=== PATIENT | male | born 1935 | race Caucasian/White ===

== ENCOUNTER 2016-03-22 09:10 | Emergency (ER) | payer MEDICARE ==
[2016-03-22 10:27] VITALS: BP 188/69
--- NOTE | 2016-03-22 11:03 | RAD ---
INDICATION: 3 weeks cough productive and weakness. COMPARISON: None. TECHNIQUE: Dual energy PA and routine lateral views of the chest were obtained. REPORT: Subtle mild alveolar consolidation at the level of the lingula with partial obscuration of the LEFT heart margin. Trace fluid in the RIGHT minor fissure. Negative for pneumothorax. Elevated lung volumes and minimal prominence of interstitial markings. Negative for cardiomegaly. Unremarkable central pulmonary vasculature. Mildly tortuous descending thoracic aorta. Mild chronic appearing compression deformities at T12 and T9. IMPRESSION: Suggestion of mild alveolar consolidation at the lingula concerning for pneumonia. Probable chronic obstructive pulmonary disease.
--- NOTE | 2016-03-22 11:15 | UC ---
Respiratory Complaint HPI - HPI Summary HPI Summary: cough for "a while". He can't really say how long. 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 For past few days, diminished energy, weakness when walking around. Body aches, malaise. Poor appetite. No vomiting or diarrhea. No sinus congestion. No flu shot, "I never get sick." Does not have a primary care doctor. - History of Current Complaint Chief Complaint: UCRespiratory Stated Complaint: COUGH,ACHY Time Seen by Provider: 03/22/16 10:16 Hx Obtained From: Patient Onset/Duration: Gradual Onset, Lasting Weeks - 3 Timing: Constant Severity Initially: Mild Severity Currently: Moderate Character: Cough: Productive Aggravating Factors: Exertion, Recumbent Position Alleviating Factors: Nothing Associated Signs And Symptoms: Positive: Chills, URI. Negative: Dyspnea, Fever , Wheezing, Hemoptysis, Dizziness, Nasal Congestion, Hoarseness, Sinus Discomfort - Risk Factors Pulmonary Embolism Risk Factors: Negative Cardiac Risk Factors: Negative Pseudomonas Risk Factors: Negative Tuberculosis Risk Factors: Negative - Allergies/Home Medications Allergies/Adverse Reactions: Allergies Allergy/AdvReac Type Severity Reaction Status Date / Time No Known Allergies Allergy Verified 03/22/16 10:27 Home Medications: Home Medications Dextromethorphan-Guaifenesin [Robitussin Cough & Chest 5-100 mg/5Ml] 1 liq PO Q4HR PRN 03/22/16 [History Confirmed 03/22/16] Dextromethorphan-Phenylephrine [[place] Plus Severe] 1 cap PO Q4HR [History Confirmed 03/22/16] PMH/Surg Hx/FS Hx/Imm Hx Previously Healthy: Yes - Surgical History Surgical History: None - Family History Known Family History: Negative: Hypertension, Respiratory Disease - Social History Occupation: Retired Lives: With Family Alcohol Use: None Substance Use Type: None Smoking Status (MU): Former Smoker Review of Systems Constitutional: Fatigue Skin: Negative Eyes: Negative ENT: Negative Respiratory: Cough Cardiovascular: Negative Gastrointestinal: Negative Genitourinary: Negative Motor: Negative Neurovascular: Negative Musculoskeletal: Negative Neurological: Negative Psychological: Negative All Other Systems Reviewed And Are Negative: Yes Physical Exam Triage Information Reviewed: Yes Appearance: Well-Appearing, No Pain Distress, Well-Nourished Vital Signs: Initial Vital Signs Temp 97 F 03/22/16 10:08 Pulse 80 03/22/16 10:08 Resp 24 03/22/16 10:08 BP 188/69 03/22/16 10:08 Pulse Ox 97 03/22/16 10:08 Vital Signs Reviewed: Yes Eye Exam: Normal ENT: Positive: Hearing grossly normal, Pharynx normal, TMs normal. Negative: Nasal congestion, Nasal drainage, Tonsillar swelling, Tonsillar exudate, Trismus , Muffled/hoarse voice Neck exam: Normal Neck: Positive: Supple Respiratory Exam: Normal Respiratory: Positive: Lungs clear, Normal breath sounds, No respiratory distress, No accessory muscle use Cardiovascular Exam: Normal Musculoskeletal Exam: Normal Neurological Exam: Normal Psychological Exam: Normal Skin Exam: Normal UC Diagnostic Evaluation - Laboratory O2 Sat by Pulse Oximetry: 97 Diagnostic Studies Comment: EKG: PAC's, no ischemic changes. CXR: lingular infiltrate Respiratory Course/Dx - Differential Dx/Diagnosis Differential Diagnosis/HQI/PQRI: Bronchitis, Lower Resp Infection Provider Diagnoses: pneumonia Discharge - Discharge Plan Condition: Stable Disposition: HOME Prescriptions: Clarithromycin [Biaxin Xl Pac] 500 mg PO BID #20 tab Patient Education Materials: Pneumonia (ED) Referrals: Non Staff,Doctor [Primary Care Provider] - Additional Instructions: If you are not getting better over the next few days, particularly if you run high fever, vomit, or have trouble breathing, return here or go to the ER.
== END 2016-03-22 11:15 | disposition home or self-care (01) ==
LOC: UCCORT 09:10
DX: J18.9 Pneumonia, unspecified organism (principal); Z87.891 Personal history of nicotine dependence
CPT/HCPCS: 71020; 87502; 93005; 99202; G0463

== ENCOUNTER 2016-03-29 13:07 | Emergency (ER) | payer MEDICARE ==
[2016-03-29 14:16] VITALS: BP 190/92
--- NOTE | 2016-03-29 14:34 | UC ---
Respiratory Complaint HPI - HPI Summary HPI Summary: Patient was seen on 03/22 and treated for pneumonia. he states that he just doesn' t feel right.c/o of nausea, SOB, not a great historian, having trouble coming up with words. not a great historian and is reaching for words, does not see a DR on a normal basis. never needed one. - History of Current Complaint Chief Complaint: UCRespiratory Stated Complaint: UPPER RESPIRATORY COMPLAINT Time Seen by Provider: 03/29/16 14:21 Hx Obtained From: Patient Onset/Duration: Sudden Onset, Lasting Days Timing: Constant Pain Intensity: 0 - states he doesnt know if it is pain, just feels strange Pain Scale Used: 0-10 Numeric Character: Cough: Productive Aggravating Factors: Deep Breaths, Recumbent Position Alleviating Factors: Nothing Associated Signs And Symptoms: Positive: Dyspnea, Nasal Congestion - Risk Factors Pulmonary Embolism Risk Factors: Negative Cardiac Risk Factors: Negative Pseudomonas Risk Factors: Negative - Allergies/Home Medications Allergies/Adverse Reactions: Allergies Allergy/AdvReac Type Severity Reaction Status Date / Time No Known Allergies Allergy Verified 03/29/16 14:11 PMH/Surg Hx/FS Hx/Imm Hx Previously Healthy: Yes - Surgical History Surgical History: None - Family History Known Family History: Negative: Hypertension, Respiratory Disease - Social History Alcohol Use: None Substance Use Type: None Smoking Status (MU): Former Smoker - Immunization History Most Recent Influenza Vaccination: Not the 2015/2016 Season Review of Systems Constitutional: Fatigue Skin: Negative Eyes: Negative ENT: Nasal Discharge Respiratory: Cough Cardiovascular: Negative Gastrointestinal: Other - nausea Genitourinary: Negative Motor: Negative Musculoskeletal: Myalgia Neurological: Headache Psychological: Negative All Other Systems Reviewed And Are Negative: Yes Physical Exam Triage Information Reviewed: Yes Appearance: Ill-Appearing, Obese Vital Signs: Initial Vital Signs Temp 98.9 F 03/29/16 14:08 Pulse 76 03/29/16 14:08 Resp 20 03/29/16 14:08 BP 190/92 03/29/16 14:08 Pulse Ox 94 03/29/16 14:08 Eye Exam: Normal Eyes: Positive: Conjunctiva Clear ENT Exam: Normal ENT: Positive: Hearing grossly normal, Pharynx normal, TMs normal Dental Exam: Normal Neck exam: Normal Neck: Positive: Supple, Nontender, No Lymphadenopathy Respiratory Exam: Normal Respiratory: Positive: Lungs clear, Normal breath sounds, No accessory muscle use Cardiovascular: Positive: No Murmur, Pulses Normal, Bradycardia Abdominal Exam: Normal Abdomen Description: Positive: Nontender, No Organomegaly, Soft Bowel Sounds: Positive: Present Musculoskeletal Exam: Normal Musculoskeletal: Positive: Strength Intact, ROM Intact, No Edema Neurological Exam: Normal Neurological: Positive: Alert, Muscle Tone Normal Psychological: Positive: Other: - seems confused, not able to tell me much, reaching for words. UC Diagnostic Evaluation - Laboratory O2 Sat by Pulse Oximetry: 94 Respiratory Course/Dx - Course Course Of Treatment: hx obtained, exam performed, meds reviewed, EKG performed, abnormal conuslted Dr rosales, agreed to have him treansfered, AMA private car to [facility] ER for further eval - Differential Dx/Diagnosis Differential Diagnosis/HQI/PQRI: Asthma, Bronchitis, Influenza, Laryngitis, MRSA , SARS, Sinusitis Provider Diagnoses: nausea. High BP. abnormal EKG Discharge - Discharge Plan Condition: Stable Disposition: AGAINST MEDICAL ADVICE
== END 2016-03-29 14:43 | disposition left against medical advice (07) ==
LOC: UCCORT 13:07
DX: I10 Essential (primary) hypertension (principal); R94.31 Abnormal electrocardiogram [ECG] [EKG]; E66.9 Obesity, unspecified; Z87.891 Personal history of nicotine dependence
CPT/HCPCS: 93005; 99212; G0463